=== PATIENT | female | born 1965 | race American Indian/Alaskan Native ===

== ENCOUNTER 2016-12-02 14:32 | Emergency (ER) | payer MEDICARE, MEDICAID ==
[2016-12-02 14:37] VITALS: BP 168/75; PULSE 92; RESP 18; TEMP 98; O2SAT 100
--- NOTE | 2016-12-02 15:35 | ED PDOC ---
Lower Extremity Pain/Injury Time Seen by Provider: 12/02/16 15:33 Chief Complaint (Nursing): Lower Extremity Problem/Injury Chief Complaint (Provider): left foot pain History Per: Patient (51 y/o female here with left foot pain that occurred after twisting injury at store. Has h/o tib fib fx in fast. Did not take any medications prior to ED visit.) Past Medical History Reviewed: Historical Data, Nursing Documentation, Vital Signs Vital Signs: Last Vital Signs Temp 98 F 12/02/16 14:34 Pulse 92 H 12/02/16 14:34 Resp 18 12/02/16 14:34 BP 168/75 H 12/02/16 14:34 Pulse Ox 100 12/02/16 14:34 - Medical History PMH: Diverticulitis, HTN - Family History Family History: States: No Known Family Hx - Home Medications Home Medications: Ambulatory Orders Medication Instructions Recorded oxyCODONE/Acetaminophen [Percocet 1 ea PO BID PRN #8 tab 06/04/14 5/325 mg Tab] Oxycodone HCl/Acetaminophen 1 - 2 tab PO Q6 PRN #15 tab 06/09/14 [Percocet 325 mg-5 mg] diaZEpam [Valium] 5 mg PO Q6 PRN #15 tab 06/09/14 Oxycodone HCl/Acetaminophen 1 tab PO QID PRN #12 tab 07/08/15 [Percocet 325 mg-5 mg] Oseltamivir Phosphate [Tamiflu] 75 mg PO BID #10 capsule 05/23/16 Naproxen 1 tab PO BID PRN #14 tab 12/02/16 Tramadol HCl [Ultram] 50 mg PO Q8 PRN #8 tablet 12/02/16 - Allergies Allergies/Adverse Reactions: Allergies Allergy/AdvReac Type Severity Reaction Status Date / Time morphine Allergy URTICARIA Verified 07/08/15 11:26 Review of Systems ROS Statement: Except As Marked, All Systems Reviewed And Found Negative Physical Exam - Reviewed Nursing Documentation Reviewed: Yes Vital Signs Reviewed: Yes - Physical Exam Appears: Positive for: Well, Non-toxic, No Acute Distress Head Exam: Positive for: ATRAUMATIC, NORMAL INSPECTION, NORMOCEPHALIC Skin: Positive for: Normal Color, Warm, DRY Eye Exam: Positive for: EOMI, Normal appearance, PERRL ENT: Positive for: Normal ENT Inspection Neck: Positive for: Normal, Painless ROM Cardiovascular/Chest: Positive for: Regular Rate, Rhythm Respiratory: Positive for: CNT, Normal Breath Sounds Gastrointestinal/Abdominal: Positive for: Normal Exam, Bowel Sounds, Soft Back: Positive for: Normal Inspection Extremity: Positive for: Normal ROM, Swelling (swelling of left mid-foot. mild tenderness lateral mealleoulus.) Neurologic/Psych: Positive for: Alert, Oriented - ECG O2 Sat by Pulse Oximetry: 100 - Progress ED Course And Treament: XRY OF FOOT: NO OBVIOUS FX MOTRIN 600MG PATIENT IS SEVERE PAIN. D/W PODIATRY. SEEN IN ED BY THEM. WILL EVALUATE FOR POSSIBLE LISFRANC. RE-EVALUATED AFTER WEIGHT BEARING FILMS ADVISED CRUTCHES AND F/U WITH MARYELLEN FOR FOOT SPRAIN. Disposition - Clinical Impression Clinical Impression: Foot sprain - Patient ED Disposition Is Patient to be Admitted: No - Disposition Referrals: Federico Ontiveros DPM [Staff Provider] - Disposition Time: 19:24 Condition: FAIR Prescriptions: Naproxen 1 tab PO BID PRN #14 tab PRN Reason: Pain, Moderate (4-7) Tramadol HCl [Ultram] 50 mg PO Q8 PRN #8 tablet PRN Reason: Pain, Severe (8-10) Instructions: Foot Sprain (ED) Forms: [employer] ([place]), [facility] ED School/Work Excuse
--- NOTE | 2016-12-02 20:40 | CP.PCM.CON ---
History of Present Illness - History of Present Illness History of Present Illness: 51 year old female seen in ED for left foot and ankle pain. Patient is accompanied with her significant other at bedside. Patient seen resting comfortably, crying but AAOx3. Patient states at 1:00 PM earlier today while she was out shopping, she tripped and fell on a stack of clothes. Patient sates she fell onto the top of her left foot. Patient states she fractured her R tibia and had ORIF tibia 10 years ago. Patient rates the pain as 9/10 currently and is unable to ambulate. Patient denies N/V/F/D/C/SOB/calf pain. No other pedal complaints at this time. PMH: HTN, diverticulitis PSH: ORIF R tibia SH: occasional ETOH FH non-contributory Meds: see med list All: morphine Review of Systems - Review of Systems All systems: reviewed and no additional remarkable complaints except (as per HPI ) Past Patient History - Past Social History Smoking Status: Current Some Days Smoker - CARDIAC Hx Hypertension: Yes - PULMONARY Hx Respiratory Disorders: No - RENAL Hx Dialysis: Yes (12 years ago) Other/Comment: "kidney problem" 12 years ago. patient is unsure of actual diagnosis, but states that the problem is gone. - MUSCULOSKELETAL/RHEUMATOLOGICAL Other/Comment: pt reports neck pain - GASTROINTESTINAL Hx Diverticulitis: Yes - PSYCHIATRIC Hx Substance Use: No - SURGICAL HISTORY Hx Surgeries: Yes Hx Musculoskeletal Surgery: Yes (left lower leg) - ANESTHESIA Hx Anesthesia: Yes Hx Anesthesia Reactions: No Meds Home Medications: Home Medication List Medication Instructions Recorded Confirmed Type Naproxen 1 tab PO BID PRN #14 tab 12/02/16 Rx Tramadol HCl [Ultram] 50 mg PO Q8 PRN #8 tablet 12/02/16 Rx Allergies/Adverse Reactions: Allergies Allergy/AdvReac Type Severity Reaction Status Date / Time morphine Allergy URTICARIA Verified 07/08/15 11:26 Physical Exam - Constitutional Appears: Well, Non-toxic, No Acute Distress - Extremities Exam Additional comments: RLE focused physical exam: Vasc: DP and PT pulses palpable 2/4. CFT <3 seconds to all digits x5. Non- pitting edema noted to dorsal midfoot and medial ankle. No increase in warmth noted. TG warm to warm. Neuro: Gross sensation intact. Derm: Erythema noted to dorsal aspect of midfoot. No open lesions, rashes, or subcutaneous nodules noted. Ortho: Pain on palpation noted to dorsal midfoot, plantar midfoot, medial ankle distal to medial malleolus, and along the course of PT tendon. MPJ, STJ, ankle joint ROM decreased due to chief complaint. +piano joe test, +medial and lateral forefoot squeeze - Neurological Exam Neurological exam: Alert, Oriented x3 - Psychiatric Exam Psychiatric exam: Normal Affect, Normal Mood Results - Vital Signs Recent Vital Signs: Last Vital Signs Temp 98 F 12/02/16 14:34 Pulse 92 H 12/02/16 14:34 Resp 18 12/02/16 14:34 BP 168/75 H 12/02/16 14:34 Pulse Ox 100 12/02/16 19:29 Assessment & Plan - Assessment and Plan (Free Text) Assessment: 51 year old female with L ankle and midfoot pain secondary to mechanical fall Plan: Patient seen and evaluated at bedside Discussed with attending, Dr. Figueroa Chart, vitals reviewed - afebrile L foot XR reviewed: No acute fx noted, no overt Lisfranc diastasis noted L ankle XR reviewd: No acute fx noted, hardware from previous ORIF tibia intact Byrne compression dressing applied to LLE. Patient is to keep dressing clean/dry /intact until appointment with Dr. Figueroa NWB to LLE with crutches. Crutches dispensed to patient Recommend RICE therapy Pain management per ED Patient is to follow up with Dr. Figueroa in office either tomorrow or Friday.
--- NOTE | 2016-12-03 11:25 | RAD ---
PROCEDURE: Left Ankle Radiographs. HISTORY: Tender medial malleolar region. COMPARISON: None FINDINGS: BONES: No acute fractures. Plantar and Achilles Tendon insertion calcaneal spurs. Incompletely visualized intramedullary shwetha left tibia. Fenestrated screws in satisfactory position. No evidence of visible hardware failure. JOINTS: Normal. No osteoarthritis. Ankle mortise maintained. Talar dome intact SOFT TISSUES: Normal. OTHER FINDINGS: None. IMPRESSION: No acute findings related to/accounting for the clinical presentation. No preliminary report provided by emergency department personnel.
--- NOTE | 2016-12-03 12:11 | RAD ---
PROCEDURE: Left Foot Radiographs. HISTORY: Foot injury. Attention on tarsal metatarsal junction regions. COMPARISON: None. FINDINGS: BONES: No acute fractures. Plantar and Achilles Tendon insertion calcaneal spurs. JOINTS: Normal. SOFT TISSUES: Normal. OTHER FINDINGS: Incompletely visualized orthopedic hardware distal tibia. IMPRESSION: No acute findings related to/accounting for the clinical presentation.
--- NOTE | 2016-12-03 13:11 | RAD ---
PROCEDURE: Left Foot Radiographs. HISTORY: L foot r/o Lisfranc injury-must be weightbearing COMPARISON: December 03, 2016. Nonweightbearing assessed FINDINGS: BONES: No acute fractures. JOINTS: Normal. SOFT TISSUES: Normal. OTHER FINDINGS: None. IMPRESSION: No acute findings related to/accounting for the clinical presentation. If Lisfranc type injury is suspected CT scan is the recommended procedure of choice. No preliminary report provided by emergency department personnel.
== END 2016-12-02 20:17 | disposition home or self-care (01) ==
LOC: H.ER 14:32
DX: S93.602A Unspecified sprain of left foot, initial encounter (principal); X50.9XXA Other and unspecified overexertion or strenuous movements or postures, initial encounter; Y92.89 Other specified places as the place of occurrence of the external cause; I10 Essential (primary) hypertension